=== PATIENT | male | born 1955 | race Hispanic/Latino ===

== ENCOUNTER 2017-08-27 14:44 | Emergency (ER) | payer BC ==
[2017-08-27 14:51] VITALS: TEMP 98.4
[2017-08-27] MEDS ORDERED: Lidocaine 1% w Epi 1:100,000 Inj ONE (15:59)
--- NOTE | 2017-08-27 16:00 | ED PDOC ---
HPI: General Adult Time Seen by Provider: 08/27/17 15:02 Chief Complaint (Nursing): Abnormal Skin Integrity Chief Complaint (Provider): Right Leg Injury History Per: Patient History/Exam Limitations: no limitations Current Symptoms Are (Timing): Still Present Additional Complaint(s): Edis is a 62 y/o male who was brought to the ED via EMS for a right leg injury. Patient states he was walking to work when he accidentally walked into a planter, cutting his right leg. His tetanus is up to date. No other medical complaints at this time. PMD: None Past Medical History Reviewed: Historical Data, Nursing Documentation, Vital Signs Vital Signs: Last Vital Signs Temp 98.4 F 08/27/17 14:47 Pulse 76 08/27/17 14:47 Resp 16 08/27/17 14:47 BP 185/114 H 08/27/17 14:47 Pulse Ox 98 08/27/17 16:03 - Medical History PMH: No Chronic Diseases - Surgical History Surgical History: Endoscopy Other surgeries: Left arm fracture repair - Family History Family History: States: No Known Family Hx - Living Arrangements Living Arrangements: With Family - Social History Current smoker - smoking cessation education provided: No Alcohol: Social Drugs: Denies - Immunization History Hx Tetanus Toxoid Vaccination: Yes (2016 ) - Home Medications Home Medications: Ambulatory Orders Medication Instructions Recorded Clindamycin [Cleocin] 300 mg PO TID #21 cap 08/27/17 - Allergies Allergies/Adverse Reactions: Allergies Allergy/AdvReac Type Severity Reaction Status Date / Time No Known Allergies Allergy Verified 08/27/17 14:47 Review of Systems ROS Statement: Except As Marked, All Systems Reviewed And Found Negative Musculoskeletal: Positive for: Leg Pain (right drummond laceration) Physical Exam - Reviewed Nursing Documentation Reviewed: Yes Vital Signs Reviewed: Yes - Physical Exam Appears: Positive for: Well, Non-toxic, No Acute Distress Skin: Negative for: Rash Eye Exam: Positive for: Normal appearance Extremity: Positive for: Normal ROM, Other (5 cm curvilinear laceration to mid right drummond, minimal active bleeding, no FB, N/V intact) Neurologic/Psych: Positive for: Alert, Oriented, Gait (steady). Negative for: Motor/Sensory Deficits - ECG O2 Sat by Pulse Oximetry: 98 (RA) Pulse Ox Interpretation: Normal Medical Decision Making Medical Decision Making: Time: 16:00 Initial Impression: 62 y/o male with right drummond injury Initial Plan: Lac repair See procedure note. Patient was given wound care instructions. Rx clindamycin given. Advised NSAID's prn pain. Scribe Attestation: Documented by Selvin Pandey, acting as a scribe for Genesis Mariano PA-C. Provider Scribe Attestation: All medical record entries made by the Scribe were at my direction and personally dictated by me. I have reviewed the chart and agree that the record accurately reflects my personal performance of the history, physical exam, medical decision making, and the department course for this patient. I have also personally directed, reviewed, and agree with the discharge instructions and disposition. Procedures - Laceration/Wound Repair Right Wound Length (cm): 5 Wound's Depth, Shape: superficial Wound Explored: clean Betadine Prep?: Yes Anesthesia: Lidocaine w/ Epi Volume Anesthetic (ccs): 10 Wound Debrided: moderate Wound Repaired With: Marylu (11) Layer Closure?: No Wound Complexity: Simple Sterile Dressing Applied?: Yes Splint Applied?: No Disposition - Clinical Impression Clinical Impression: Laceration of leg Counseled Patient/Family Regarding: Diagnosis, Need For Followup, Rx Given - Disposition Referrals: [facility] [Outside] Disposition: Routine/Home Disposition Time: 16:56 Condition: STABLE Additional Instructions: Keep wound clean and dry. Wash daily with soap and water. Keep covered while outside, and well at home. Apply Neosporin once daily only. [id number] Tylenol or Advil for pain as needed. Take prescription meds as directed. Wound check 2-3 days, staple removal 10-14 days. Prescriptions: Clindamycin [Cleocin] 300 mg PO TID #21 cap Instructions: Laceration Repair With Marylu (DC) Forms: [place] (Malay)
[2017-08-27 17:09] VITALS: BP 159/95; PULSE 85; RESP 18; O2SAT 97
== END 2017-08-27 17:11 | disposition home or self-care (01) ==
LOC: H.ER 14:44
DX: S81.811A Laceration without foreign body, right lower leg, initial encounter (principal); W22.09XA Striking against other stationary object, initial encounter